=== PATIENT | female | born 1995 | race Caucasian/White ===

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

== ENCOUNTER 2017-01-01 18:52 | Inpatient (IN) | payer MEDICAID ==
[~2017-01-01] VITALS: Ht 172.7 cm; Wt 56.5 kg
[~2017-01-01 18:52] MED LIST: ETON68IM3 SUBD
[2017-01-01] MEDS ORDERED: SODIUM CHLORIDE 0.9% 1,000ML IVBOLUS ONE (19:00)
[2017-01-01 19:27] LABS: HEMATOCRIT 41.9 % (34.6-47.8); HEMOGLOBIN 14.2 g/dL (11.7-16.4); WHITE BLOOD COUNT 8.6 x10^3/uL (4.5-13.2)
[2017-01-01 19:35] LABS: ASPARTATE AMINO TRANSFERASE 17 U/L (15-37); BLOOD UREA NITROGEN 8 mg/dL (7-18)
[2017-01-01 19:41] LABS: DAU SCREEN DISCLAIMER
[2017-01-01 19:46] LABS: ACETAMINOPHEN < 2 mcg/mL (10-30)
[2017-01-01] MEDS ORDERED: CEFTRIAXONE PMX 1GM/50ML 50 ML IV ONE (20:30)
[2017-01-01] MEDS ORDERED: CEFTRIAXONE PMX 1GM/50ML 50 ML ONE (20:49)
[2017-01-01] MEDS ORDERED: CEFTRIAXONE PMX 1GM/50ML 50 ML IV SCH (23:00)
[2017-01-01] MEDS ORDERED: ACETAMINOPHEN 325 MG TABLET PO PRN (23:00)
[2017-01-01] MEDS ORDERED: ONDANSETRON 2MG/ML, 2ML IVPush PRN (23:00)
[2017-01-01 23:18] VITALS: BP 109/68
[2017-01-01] MEDS: NS + 20MEQ KCL 1,000 ML IV SCH (23:53)
[2017-01-02 00:35] VITALS: BP 109/73
[2017-01-02] MEDS: NS + 20MEQ KCL 1,000 ML IV SCH ×3 (06:30→20:34)
[2017-01-02 07:19] VITALS: BP 104/63
[2017-01-02] MEDS ORDERED: POTASSIUM CHLORIDE 20 MEQ TAB.ER.PRT PO ONE (08:00)
[2017-01-02 13:17] VITALS: BP 105/63
[2017-01-02 19:50] VITALS: BP 103/68
[2017-01-03 01:19] VITALS: BP 90/62
[2017-01-03] MEDS: NS + 20MEQ KCL 1,000 ML IV SCH (04:49)
[2017-01-03 06:06] LABS: HEMATOCRIT 37.9 % (34.6-47.8); HEMOGLOBIN 12.8 g/dL (11.7-16.4); WHITE BLOOD COUNT 6.4 x10^3/uL (4.5-13.2)
[2017-01-03 06:18] LABS: BLOOD UREA NITROGEN 10 mg/dL (7-18)
[2017-01-03 07:50] VITALS: BP 114/73
[2017-01-03] MEDS ORDERED: CEFDINIR 300 MG CAPSULE PO SCH (09:00)
[2017-01-03 13:15] VITALS: BP 108/76
[2017-01-03] MEDS ORDERED: ONDANSETRON 2MG/ML, 2ML IVPush PRN (16:00)
[2017-01-03] MEDS ORDERED: ACETAMINOPHEN 325 MG TABLET PO PRN (16:00)
== END 2017-01-03 18:53 | DRG 917 ==
LOC: ED 21:10 → EDIP 21:55 → 4WST 23:04 → 3E 01-03 13:08
PROVIDERS: ADMIT Hospitalist; ATTEND Hospitalist
DX: T48.1X2A Poisoning by skeletal muscle relaxants [neuromuscular blocking agents], intentional self-harm, initial encounter (principal); G93.41 Metabolic encephalopathy; N39.0 Urinary tract infection, site not specified; E87.6 Hypokalemia; Y92.89 Other specified places as the place of occurrence of the external cause
CPT/HCPCS: 36415; 80048; 80053; 80307; 80329; 81001; 84443; 84703; 85025; 87077; 87086; 87186; 93005; 96361; 96365; J0696; J3480; G0479; G0480; J7030